=== PATIENT | male | born 1965 | race American Indian/Alaskan Native ===

== ENCOUNTER 2017-11-23 20:19 | Emergency (ER) | payer SELFPAY ==
[2017-11-23 20:44] VITALS: BP 143/84
[2017-11-23] MEDS ORDERED: TORADOL ONE (21:13)
[2017-11-23] MEDS ORDERED: TORADOL IM ONE (21:20)
== END 2017-11-24 02:51 | disposition left against medical advice (07) ==
LOC: ED 20:19
DX: M25.551 Pain in right hip (principal); Z53.21 Procedure and treatment not carried out due to patient leaving prior to being seen by health care provider
CPT/HCPCS: J1885

== ENCOUNTER 2017-11-24 09:06 | Emergency (ER) | payer SELFPAY ==
--- NOTE | 2017-11-24 09:30 | Emergency Department Report ---
ED Lower Extremity HPI - General Chief Complaint: Extremity Injury, Lower Stated Complaint: HIP PAIN Time Seen by Provider: 11/24/17 09:21 Source: patient Mode of arrival: Ambulatory Limitations: No Limitations - History of Present Illness Initial Comments: Patient is 52 years old male with no significant past medical history. Patient presented to the ER complaining of right hip and right thigh pain for the last 3 days. Patient denied any recent injury. He is complaining of pain in the right buttock area. Patient denied any back pain, weakness, numbness or tingling sensation. No bowel or bladder incontinence. Patient denied any recent fever. Injury: Hip: Right, Thigh: Right - Related Data Allergies Allergy/AdvReac Type Severity Reaction Status Date / Time No Known Allergies Allergy Verified 11/24/17 09:07 ED Review of Systems ROS: Stated complaint: HIP PAIN Other details as noted in HPI Comment: All other systems reviewed and negative Constitutional: denies: fever ENT: denies: ear pain Cardiovascular: denies: chest pain Gastrointestinal: denies: abdominal pain, nausea Musculoskeletal: denies: back pain, joint swelling, arthralgia Neurological: denies: headache, weakness ED Past Medical Hx - Surgical History Additional Surgical History: right arm, right shoulder diffusion - Social History Smoking Status: Current Every Day Smoker Substance Use Type: None ED Physical Exam - General Limitations: No Limitations General appearance: alert, in no apparent distress - Head Head exam: Present: atraumatic, normocephalic, normal inspection - Eye Eye exam: Present: normal appearance - ENT ENT exam: Present: normal exam, normal orophraynx, mucous membranes moist - Neck Neck exam: Present: normal inspection, full ROM. Absent: tenderness, meningismus - Respiratory Respiratory exam: Present: normal lung sounds bilaterally - Cardiovascular Cardiovascular Exam: Present: normal heart sounds - GI/Abdominal GI/Abdominal exam: Present: soft. Absent: distended, tenderness, guarding - Extremities Exam Extremities exam: Present: normal inspection, full ROM, normal capillary refill , other (point of tenderness at the right buttock). Absent: tenderness, pedal edema, joint swelling, calf tenderness - Back Exam Back exam: Present: normal inspection, full ROM. Absent: tenderness, CVA tenderness (R), CVA tenderness (L), muscle spasm, paraspinal tenderness, vertebral tenderness, rash noted - Neurological Exam Neurological exam: Present: alert, oriented X3, CN II-XII intact, normal gait, reflexes normal - Skin Skin exam: Present: warm, intact, normal color ED Course Vital Signs 11/24/17 09:07 Temperature 97.8 F Pulse Rate 70 Respiratory 16 Rate Blood Pressure 172/94 O2 Sat by Pulse 97 Oximetry ED Lower Extremity MDM - Radiology Data Radiology results: report reviewed Referring Physician: DINA HARVEY Patient Name: JORDEN LEIGH Date of : 1965 Sex: Male Report Date: 2017-11-24 Report Status: Finalized Findings [facility] [address] [place] [address] XRay Report Signed Patient: JORDEN LEIGH MR#: [id number] : 1965 Acct:[id number] Age/Sex: 52 / M ADM Date: 11/24/17 Loc: ED Attending Dr: Ordering Physician: DINA HARVEY Date of Service: 11/24/17 Procedure(s): XR hip 2-3V RT Accession Number(s): [id number] cc: DINA HARVEY Fluoro Time In Minutes: FINAL REPORT EXAM: XR HIP 2-3V RT HISTORY: rt hip pain TECHNIQUE: AP pelvis and lateral view of right hip. PRIORS: None. FINDINGS: There is no pelvis fracture seen. SI joints are unremarkable. Hip joint spaces are maintained. Right hip has a normal appearance. IMPRESSION: There is no acute abnormality identified. Transcribed By: [facility] Dictated By: AMARJIT APONTE MD Electronically Authenticated By: AMARJIT APONTE MD Signed Date/Time: 11/24/17 1037 DD/ 1037 TD/TT: 11/24/17 1037 Critical care attestation.: If time is entered above; I have spent that time in minutes in the direct care of this critically ill patient, excluding procedure time. ED Disposition Clinical Impression: Piriformis syndrome of right side Disposition: DC-01 TO HOME OR SELFCARE Is pt being admited?: No Condition: Stable Instructions: Piriformis Syndrome (ED) Referrals: PRIMARY CARE, [Primary Care Provider] - 3-5 Days
--- NOTE | 2017-11-24 10:42 | XRay Report ---
FINAL REPORT EXAM: XR HIP 2-3V RT HISTORY: rt hip pain TECHNIQUE: AP pelvis and lateral view of right hip. PRIORS: None. FINDINGS: There is no pelvis fracture seen. SI joints are unremarkable. Hip joint spaces are maintained. Right hip has a normal appearance. IMPRESSION: There is no acute abnormality identified.
[2017-11-24 12:13] VITALS: BP 161/94
== END 2017-11-24 10:59 | disposition home or self-care (01) ==
LOC: ED 09:06
DX: G57.01 Lesion of sciatic nerve, right lower limb (principal); F17.200 Nicotine dependence, unspecified, uncomplicated
CPT/HCPCS: 73502; 96372; 99283; J2930

== ENCOUNTER 2018-09-06 08:25 | Emergency (ER) | payer SELFPAY ==
[2018-09-06 08:33] VITALS: BP 145/79
--- NOTE | 2018-09-06 10:30 | Emergency Department Report ---
HPI - General Chief Complaint: Extremity Problem,Nontraumatic Time Seen by Provider: 09/06/18 09:54 - HPI HPI: This is a 53-year-old male who presents to ED complaining his left index finger redness and pain in the past week. Patient states about a month ago he had some stitches placed and removed in that area. Patient states that he noticed some redness and swelling the past week. He denies any reinjury or trauma. ED Past Medical Hx - Past Medical History Previous Medical History?: No - Surgical History Past Surgical History?: Yes Additional Surgical History: right arm, right shoulder diffusion - Social History Smoking Status: Current Every Day Smoker Substance Use Type: None - Medications Home Medications: Home Medications Medication Instructions Recorded Confirmed Last Taken Type Naproxen [Naprosyn] 500 mg PO BID #14 tablet 11/24/17 Unknown Rx Ondansetron [Zofran Odt] 4 mg PO Q8HR PRN #14 tab.rapdis 11/24/17 Unknown Rx traMADol [Ultram 50 MG tab] 50 mg PO Q4HR PRN #14 tablet 11/24/17 Unknown Rx Clindamycin [Clindamycin CAP] 300 mg PO TID #20 capsule 09/06/18 Unknown Rx Ibuprofen [Motrin] 800 mg PO Q8HR #30 tablet 09/06/18 Unknown Rx ED Review of Systems ROS: Stated complaint: L HAND PAIN Other details as noted in HPI Comment: All other systems reviewed and negative Physical Exam - Physical Exam Vital Signs: Vital Signs 09/06/18 08:31 Temperature 97.8 F Pulse Rate 68 Respiratory 16 Rate Blood Pressure 145/79 O2 Sat by Pulse 98 Oximetry Physical Exam: GENERAL: Alert and oriented x3, no apparent distress, Normal Gait, atraumatic. HEAD: Head is normocephalic and a-traumatic. EYES: Extra ocular muscles are intact. Pupils are equal, round, and reactive to light and accommodation. EARS: symetrical, atraumatic, non tender, ear canal clear and moderate cerumen, tympanic membrance non inflamed. gross auditory nml bilaterally. EXTREMITIES/MUSCULOSKELETAL: No cyanosis, clubbing, rash, lesions or edema. Full ROM bilaterally. UE/LE Pulses 2+ bilaterally. Left index finger cellulitic. Nontender to palpation, mallet finger for many of the index finger. NEUROLOGIC: The patient is cooperative with no focal neurologic deficits. SKIN: Warm and dry, No lesions, No ulceration or induration present. ED Course Vital Signs 09/06/18 08:31 Temperature 97.8 F Pulse Rate 68 Respiratory 16 Rate Blood Pressure 145/79 O2 Sat by Pulse 98 Oximetry ED Medical Decision Making - Medical Decision Making 53-year-old male presents with multiple abrasion on his finger. Left index finger PIP joint was mildly cellulitic, nontender and nonfluctuant. Discussed the patient to apply heat 3 times the finger. Discussed antibiotic therapy 3 times a day and Motrin for pain Vital signs are normal patient is in no acute distress. Critical care attestation.: If time is entered above; I have spent that time in minutes in the direct care of this critically ill patient, excluding procedure time. ED Disposition Clinical Impression: Abrasion of finger with infection Disposition: - TO HOME OR SELFCARE Is pt being admited?: No Does the pt Need Aspirin: No Condition: Stable Instructions: Abrasion (ED), Cellulitis (ED), Heat Pack Application (ED) Additional Instructions: Make sure to follow up with the primary care physician as discussed. Take all your medications as you've been prescribed. If you have any worsening symptoms or develop new symptoms please return to ED immediately. Prescriptions: Clindamycin [Clindamycin CAP] 300 mg PO TID #20 capsule Ibuprofen [Motrin] 800 mg PO Q8HR #30 tablet Referrals: [facility] [Outside] - 3-5 Days Forms: Work/School Release Form(ED) Time of Disposition: 10:45
== END 2018-09-06 11:48 | disposition home or self-care (01) ==
LOC: ED 08:25
DX: S60.411A Abrasion of left index finger, initial encounter (principal); F17.200 Nicotine dependence, unspecified, uncomplicated; Z79.899 Other long term (current) drug therapy; X58.XXXA Exposure to other specified factors, initial encounter; Y93.9 Activity, unspecified; Y92.89 Other specified places as the place of occurrence of the external cause; Y99.8 Other external cause status
CPT/HCPCS: 99281

== ENCOUNTER 2018-09-19 13:44 | Emergency (ER) | payer SELFPAY ==
--- NOTE | 2018-09-19 14:12 | Emergency Department Report ---
Chief Complaint: Extremity Injury, Upper Stated Complaint: KNOT ON FINGER Time Seen by Provider: 09/19/18 14:12 - HPI History of Present Illness: here last week for the same did not get rx he states lac 2 m ago was getting better he bumped it yesterday and now inc in swelling mse completed MSE screening note: Focused history and physical exam performed. Due to findings the following was ordered: ED Disposition for MSE Condition: Stable
--- NOTE | 2018-09-19 16:01 | Emergency Department Report ---
ED Upper Extremity Inj HPI - General Chief Complaint: Extremity Injury, Upper Stated Complaint: KNOT ON FINGER Time Seen by Provider: 09/19/18 15:52 Source: patient Mode of arrival: Ambulatory Limitations: No Limitations - History of Present Illness Initial Comments: Patient is a 53-year-old male that presents to the emergency room with complaints of swelling and redness to his left second finger. Patient states he hit his finger with a hammer yesterday and then it started swelling and became painful and red. Patient states he had some pus that came out when he hit it. Patient states about a month ago he had another cut to the same finger and location and required suturing. Sutures were removed 10 days after they were placed.. Patient states the pain is 10 out of 10. Patient states the pain is not radiating. Patient states the pain is better with rest and worse with movement and palpation. MD Complaint: Injury to:: left -: Sudden Other Extremity Injury: Fingers: Left Other Injuries: none Place: work Severity scale (0 -10): 10 Improves With: rest Worsens With: movement of extremity Context: direct blow Associated Symptoms: denies: weakness, numbness, neck pain, suspects foreign body, nausea/vomiting, heard/felt popping sensat - Related Data Previous Rx's Medication Instructions Recorded Last Taken Type Naproxen [Naprosyn] 500 mg PO BID #14 tablet 11/24/17 Unknown Rx Ondansetron [Zofran Odt] 4 mg PO Q8HR PRN #14 tab.rapdis 11/24/17 Unknown Rx Clindamycin [Clindamycin CAP] 300 mg PO TID #20 capsule 09/06/18 Unknown Rx Ibuprofen [Motrin] 800 mg PO Q8HR #30 tablet 09/06/18 Unknown Rx Doxycycline Hyclate [Doxycycline 100 mg PO Q12HR 10 Days #20 tab 09/19/18 Unknown Rx Hyclate TAB] traMADol [Ultram 50 MG tab] 50 mg PO Q4HR PRN #14 tablet 09/19/18 Unknown Rx Allergies Allergy/AdvReac Type Severity Reaction Status Date / Time No Known Allergies Allergy Verified 11/24/17 09:07 ED Review of Systems ROS: Stated complaint: KNOT ON FINGER Other details as noted in HPI Constitutional: denies: chills, fever Eyes: denies: eye pain, eye discharge, vision change ENT: denies: ear pain, throat pain Respiratory: denies: cough, shortness of breath, wheezing Cardiovascular: denies: chest pain, palpitations Endocrine: no symptoms reported Gastrointestinal: denies: abdominal pain, nausea, diarrhea Genitourinary: denies: urgency, dysuria Musculoskeletal: denies: back pain, joint swelling, arthralgia Skin: denies: rash, lesions Neurological: denies: headache, weakness, paresthesias Psychiatric: denies: anxiety, depression Hematological/Lymphatic: denies: easy bleeding, easy bruising ED Past Medical Hx - Past Medical History Previous Medical History?: No - Surgical History Past Surgical History?: Yes Additional Surgical History: right arm, right shoulder diffusion - Family History Family history: no significant - Social History Smoking Status: Former Smoker Substance Use Type: Alcohol - Medications Home Medications: Home Medications Medication Instructions Recorded Confirmed Last Taken Type Naproxen [Naprosyn] 500 mg PO BID #14 tablet 11/24/17 Unknown Rx Ondansetron [Zofran Odt] 4 mg PO Q8HR PRN #14 tab.rapdis 11/24/17 Unknown Rx Clindamycin [Clindamycin CAP] 300 mg PO TID #20 capsule 09/06/18 Unknown Rx Ibuprofen [Motrin] 800 mg PO Q8HR #30 tablet 09/06/18 Unknown Rx Doxycycline Hyclate [Doxycycline 100 mg PO Q12HR 10 Days #20 tab 09/19/18 Unknown Rx Hyclate TAB] traMADol [Ultram 50 MG tab] 50 mg PO Q4HR PRN #14 tablet 09/19/18 Unknown Rx ED Physical Exam - General Limitations: No Limitations General appearance: alert, in no apparent distress - Head Head exam: Present: atraumatic, normocephalic - Eye Eye exam: Present: normal appearance - ENT ENT exam: Present: mucous membranes moist - Neck Neck exam: Present: normal inspection - Respiratory Respiratory exam: Present: normal lung sounds bilaterally. Absent: respiratory distress - Cardiovascular Cardiovascular Exam: Present: regular rate, normal rhythm. Absent: systolic murmur, diastolic murmur, rubs, gallop - GI/Abdominal GI/Abdominal exam: Present: soft, normal bowel sounds - Rectal Rectal exam: Present: deferred - Extremities Exam Extremities exam: Present: normal inspection (except for left second digit is red and swollen and tender to palpation. Findings consistent with abscess.) - Back Exam Back exam: Present: normal inspection - Neurological Exam Neurological exam: Present: alert, oriented X3 - Psychiatric Psychiatric exam: Present: normal affect, normal mood - Skin Skin exam: Present: warm, dry, intact, normal color. Absent: rash ED Course Vital Signs 09/19/18 09/19/18 14:11 16:56 Temperature 97.7 F 98.1 F Pulse Rate 85 83 Respiratory 16 17 Rate Blood Pressure 139/81 Blood Pressure 134/79 [Right] O2 Sat by Pulse 99 99 Oximetry - Reevaluation(s) Reevaluation #1: I&D done of the left second finger. See procedure note. After results discussed with patient prior to I&D. 09/19/18 16:20 Patient is stable for discharge. Patient given discharge instructions. Sterile dressing placed by nurse. The patient will require antibiotics. Patient voiced understanding of all instructions. 09/19/18 16:26 - I & D Left Dorsal Finger Type of Procedure: Simple Blade Size: 11 I & D Procedure: betadine prep, sterile drapes applied, sterile dressing applied Progress: Digital block done with 7 Roberto of lidocaine. After anesthesia is achieved site was cleaned and draped in a sterile fashion. A 11 blade used to open site. Pus and material drained. Wound explored and no pockets remaining. Sterile dressing light after procedure. Patient tolerated procedure well. Patient discharged home. Patient given wound care instructions. Patient will require a wound check by his primary care in 2 to 3 days. ED Medical Decision Making - Medical Decision Making Patient is a 53-year-old male that presents with left second digit pain. Patient found to have an abscess on the left second digit. Patient x-ray was negative. Patient stable for discharge. Patient be discharged home with instructions and antibiotics. An I&D done in the ER. See procedure note. - Differential Diagnosis abscess. Cellulitis. Trauma. Critical care attestation.: If time is entered above; I have spent that time in minutes in the direct care of this critically ill patient, excluding procedure time. ED Disposition Clinical Impression: Abscess of finger of left hand, Finger pain, left Disposition: DC-01 TO HOME OR SELFCARE Is pt being admited?: No Does the pt Need Aspirin: No Condition: Stable Instructions: Abscess (ED) Additional Instructions: Patient to follow up with primary care in 2-3 days. Patient to return to ER if condition worsens. Patient take meds as directed. Patient to increase water. Patient to rest. Patient to keep site clean and dry. Patient to take Tylenol or ibuprofen when necessary for pain. Prescriptions: Doxycycline Hyclate [Doxycycline Hyclate TAB] 100 mg PO Q12HR 10 Days #20 tab traMADol [Ultram 50 MG tab] 50 mg PO Q4HR PRN #14 tablet PRN Reason: Pain Referrals: [facility] [Other] - 2-3 Days Time of Disposition: 16:31
--- NOTE | 2018-09-19 16:03 | XRay Report ---
PROCEDURE: XR FINGER(S) 2+V LT TECHNIQUE: 3 views of the left second finger. HISTORY: swelling COMPARISONS: None. FINDINGS: No fracture. No dislocation. Normal mineralization. There is soft tissue swelling surrounding the left second finger. No bony erosion or periosteal reaction. No retained radiopaque foreign body. IMPRESSION: Soft tissue swelling of the left second finger without acute osseous abnormality. This document is electronically signed by Valeria Schuster., Sep 19 2018 04:01:27 PM ET
[2018-09-19] MEDS ORDERED: XYLOCAINE 1% MPF 5 mL INFILTRATI ONE (16:07)
[2018-09-19] MEDS ORDERED: XYLOCAINE 1% MPF 5 mL ONE (16:12)
[2018-09-19 16:58] VITALS: BP 134/79
== END 2018-09-19 16:58 | disposition home or self-care (01) ==
LOC: ED 13:44
DX: L02.512 Cutaneous abscess of left hand (principal); Z98.890 Other specified postprocedural states; Z87.891 Personal history of nicotine dependence